=== PATIENT | male | born 1965 ===

== ENCOUNTER 2018-10-31 17:30 | Emergency (ER) | payer MEDICAID, OTHER ==
[2018-10-31 17:42] VITALS: BMI 26.6
[2018-10-31 17:44] VITALS: BP 131/90; PULSE 63; RESP 18; TEMP 98.1; O2SAT 97
[2018-10-31] MEDS ORDERED: Bacitracin 500 Units/gm Oint Foilpak UD TOP ONE (17:49)
--- NOTE | 2018-10-31 19:17 | ED PDOC ---
Arrival/HPI - General Chief Complaint: Abnormal Skin Integrity Time Seen by Provider: 10/31/18 17:45 Historian: Patient - History of Present Illness Narrative History of Present Illness (Text): 10/31/18 20:27 53 y/o male with no significant PMH presents to the ED c/o scalp laceration that occurred yesterday at approx 5pm. Pt states he was bending to pick something up and hit his head on a shelf upon standing, sustaining a laceration to the top of his head. Bleeding was controlled at home and he refused to come to ED. Patient's advised him to come for evaluation, prompting visit. Since the injury, patient has been experiencing intermittent headaches, dizziness, and neck pain. has been cleaning the area and applying bacitracin since yesterday. Denies fever, chills, signs of wound infection, syncope, vision godfrey ges, numbness, weakness, paresthesias, or any other associated complaint. Past Medical History - Provider Review Nursing Documentation Reviewed: Yes - Infectious Disease Hx of Infectious Diseases: None - Psychiatric Hx Substance Use: No - Anesthesia Hx Anesthesia: No Family/Social History - Physician Review Nursing Documentation Reviewed: Yes Family/Social History: No Known Family HX Smoking Status: Never Smoked Hx Alcohol Use: No Hx Substance Use: No Allergies/Home Meds Allergies/Adverse Reactions: Allergies Penicillins Allergy (Verified 10/31/18 17:42) RASH Home Medications: Home Meds Medication Instructions Recorded Confirmed No Known Home Med 10/31/18 10/31/18 Review of Systems - Review of Systems Constitutional: Normal. absent: Fevers Eyes: Normal. absent: Vision Changes ENT: Normal. absent: Sore Throat, Sinus Congestion Respiratory: Normal. absent: SOB, Cough Cardiovascular: Normal. absent: Chest Pain, Palpitations Gastrointestinal: Normal. absent: Abdominal Pain, Nausea, Vomiting Genitourinary Male: Normal. absent: Dysuria, Frequency Musculoskeletal: Neck Pain Skin: Laceration. absent: Rash, Cellulitis Neurological: Headache, Dizziness. absent: Focal Weakness Physical Exam Vital Signs Reviewed: Yes Vital Signs Temp Pulse Resp BP Pulse Ox 10/31/18 17:42 98.1 F 63 18 131/90 97 Temperature: Afebrile Blood Pressure: Normal Pulse: Regular Respiratory Rate: Normal Appearance: Positive for: Well-Appearing, Non-Toxic, Comfortable Pain Distress: None Mental Status: Positive for: Alert and Oriented X 3 - Systems Exam Head: Present: Normocephalic, Laceration (4cm linear superficial laceration to top of scalp, with shaved hair around; no cellulitis or fluctuance, no active bleeding, wound edges approximated). No: Tenderness Pupils: Present: PERRL Extroacular Muscles: Present: EOMI Conjunctiva: Present: Normal Mouth: Present: Moist Mucous Membranes Neck: Present: Normal Range of Motion, MIDLINE TENDERNESS (mild C4-C5 midline tenderness ). No: Meningeal Signs, Paraspinal Tenderness Respiratory/Chest: Present: Clear to Auscultation, Good Air Exchange. No: Respiratory Distress, Accessory Muscle Use Cardiovascular: Present: Regular Rate and Rhythm, Normal S1, S2 Back: Present: Normal Inspection. No: Midline Tenderness, Paraspinal Tenderness Upper Extremity: Present: Normal Inspection, Normal ROM, NORMAL PULSES, Neurovascularly Intact, Capillary Refill < 2s. No: Cyanosis, Edema, Temperature Abnormalties Lower Extremity: Present: Normal ROM Neurological: Present: GCS=15, CN II-XII Intact, Speech Normal, Motor Func Grossly Intact, Normal Sensory Function, Gait Normal Skin: Present: Warm, Dry, Normal Color. No: Rashes Psychiatric: Present: Alert, Oriented x 3, Normal Insight, Normal Concentration, Normal Affect, Normal Mood Medical Decision Making ED Course and Treatment: Initial Plan: * Head CT * Cervical Spine CT * Wound Care No tetanus indicated. Pt has had TDAP within the last 5 years according to him and . CT head and cervical spine negative for any acute pathology. Wound dressed with bacitracin and sterile dressing by nursing. Wound care and head injury observation instructions discussed with family and patient. No indication for staple/suture closure secondary to time from injury >24 hours and no active bleeding or gaping wound. Diagnostic testing results and plan of care discussed with patient. Strict instructions given regarding importance of followup, and signs/symptoms to return to ER including worsening pain, syncope, numbness, weakness, paresthesias, fever, chills, signs of wound infection, or any other new/worsening symptoms. Pt verbalized understanding of discussion. Patient is A&Ox3, ambulating with steady gait, with vital signs stable for discharge. - RAD Interpretation Narrative RAD Interpretations (Text): 10/31/18 19:25 CT Cervical Spine: FINDINGS: ALIGNMENT: Bony alignment is anatomic. DEGENERATIVE CHANGES: There is advanced hypertrophic and degenerative change with marked disc space narrowing and bony spurring of the vertebral bodies at the C6-C7 level. SOFT TISSUES: The prevertebral soft tissues are within normal limits. BONES: No acute fracture or aggressive appearing osseous lesion. IMPRESSION: No acute cervical spine abnormality. Advanced hypertrophic and degenerative change with chronic disc disease at the C6-C7 level. Electronically signed on Oct 31, 2018 7:23:52 PM EDT by: Francisco J Strickland M.D., Certified by [employer], Diagnostic Radiology CT Head: FINDINGS: BRAIN: No acute intraparenchymal hemorrhage. No mass lesion. No CT evidence for acute territorial infarct. No midline shift or extra-axial collections. VENTRICLES: No hydrocephalus. ORBITS: The orbits are unremarkable. SINUSES AND MASTOIDS: The paranasal sinuses and mastoid air cells are clear. BONES: No fracture. SOFT TISSUES: Unremarkable. IMPRESSION: No acute intracranial abnormality. Electronically signed on Oct 31, 2018 7:20:57 PM EDT by: Francisco J Strickland M.D., Certified by [employer], Diagnostic Radiology Radiology Orders: 10/31/18 17:49 CERVICAL SPINE W/O CONTRAST [CT] Stat HEAD W/O CONTRAST [CT] Stat Options Trader: Radiologist - Medication Orders Current Medication Orders: Discontinued Medications Bacitracin (Bacitracin) 1 ea TOP ONCE ONE Stop: 10/31/18 17:50 Disposition/Present on Arrival - Present on Arrival Any Indicators Present on Arrival: No History of DVT/PE: No History of Uncontrolled Diabetes: No Urinary Catheter: No History of Decub. Ulcer: No History Surgical Site Infection Following: None - Disposition Have Diagnosis and Disposition been Completed?: Yes Diagnosis: Head injury, Scalp laceration, Post concussive syndrome Disposition: HOME/ ROUTINE Disposition Time: 19:30 Condition: GOOD Discharge Instructions (ExitCare): Postconcussion Syndrome, Wound Care (DC), Closed Head Injury (DC), Head Injury Observation (DC) Additional Instructions: Apply neosporin and cover wound for the next 2 days After 2 days, wash with soap and water daily and leave open to air Keep area clean and dry Rest, no strenuous activity Followup with primary doctor within 2 days Return to ER with any new/worsening symptoms Referrals: Bhumi Kay MD [Medical Doctor] - Follow up with primary [facility] [place] [Outside] - Follow up with primary Forms: [employer] ([place]), WORK NOTE
--- NOTE | 2018-11-01 09:40 | CT ---
Date of service: 10/31/2018 PROCEDURE: CT HEAD WITHOUT CONTRAST. HISTORY: Headache COMPARISON: None available. TECHNIQUE: Axial computed tomography images were obtained through the head/brain without intravenous contrast. Radiation dose: Total exam DLP = 900.61 mGy-cm. This CT exam was performed using one or more of the following dose reduction techniques: Automated exposure control, adjustment of the mA and/or kV according to patient size, and/or use of iterative reconstruction technique. FINDINGS: HEMORRHAGE: No acute parenchymal, subarachnoid or extra-axial hemorrhage. BRAIN: No evidence of large acute infarct. Mild age-appropriate volume loss VENTRICLES: No obstructive hydrocephalus. CALVARIUM: Unremarkable. PARANASAL SINUSES: Unremarkable as visualized. No significant inflammatory changes. MASTOID AIR CELLS: Unremarkable as visualized. No inflammatory changes. OTHER FINDINGS: None. IMPRESSION: Acute intracranial hemorrhage.
--- NOTE | 2018-11-01 11:09 | CT ---
Date of service: 10/31/2018 PROCEDURE: CT Cervical Spine without contrast HISTORY: Neck pain COMPARISON: None available. TECHNIQUE: Axial computed tomography images were obtained of the cervical spine without the use of intravenous contrast. Coronal and sagittal reformatted images were created and reviewed. Radiation dose: Total exam DLP = 467.57 mGy-cm. This CT exam was performed using one or more of the following dose reduction techniques: Automated exposure control, adjustment of the mA and/or kV according to patient size, and/or use of iterative reconstruction technique. FINDINGS: VERTEBRAE: No acute displaced fractures, compression fractures nor retropulsed fragments. Vertebral bodies exhibit normal stature. Straightening of the normal cervical lordosis and very slightly views scoliosis which could be due to patient positioning gantry however underlying element of muscle spasm may contribute.. Vertebral bodies otherwise exhibit normal alignment. Facets normally aligned. DISCS/SPINAL CANAL/NEURAL FORAMINA: Degenerative spondylosis is present at the C6-C7 level. There is a chronic appearing Schmorl's node involving the C6 and C7 endplates with broad-based disc ridge complex contiguous with hypertrophic uncovertebral joints. These changes result in mild canal narrowing with suspected minor flattening of the ventral surface of the cord as well. Exit foramina are narrowed bilaterally due to overgrown uncovertebral facet joints. The remaining levels exhibit varying degrees of minor posterior disc bulging and slightly overgrown uncovertebral as well as facet joints. The overall central canal is marginal to adequate.. PARASPINAL SOFT TISSUES: Unremarkable. OTHER FINDINGS: None. IMPRESSION: No acute fractures. Degenerative spondylosis most notably affecting C6-C7 level as above.
== END 2018-10-31 19:58 | disposition home or self-care (01) ==
LOC: ED 17:30
DX: S01.01XA Laceration without foreign body of scalp, initial encounter (principal); W22.09XA Striking against other stationary object, initial encounter; F07.81 Postconcussional syndrome